=== PATIENT | male | born 1970 | race Caucasian/White ===

== ENCOUNTER → 2021-07-18 10:29 | Outpatient (CLI) | payer OTHER, SELFPAY ==
[2021-07-18 18:46] LABS: Add Manual Diff / Slide Review NO; Basophils Absolute Auto 0 /uL (0-100); Basophils Percent Auto 0.4 % (0-2); Eosinophils Absolute Auto 300 /uL (0-450); Hematocrit 42.4 % (41-53); Hemoglobin 14.4 g/dL (13.5-17.5); Lymphocytes Absolute Auto 1800 /uL (1100-4500); Lymphocytes Percent Auto 27.7 % (25-40); Mean Corpuscular HGB Conc 33.9 % (30-36); Mean Corpuscular Hemoglobin 30.1 PG (26-34); Mean Corpuscular Volume 88.9 fL (80-100); Monocytes Absolute Auto 600 /uL (0-900); Neutrophils Absolute Auto 3900 /uL (1500-7000); Neutrophils Percent Auto 58.9 % (50-75); Platelet Count 243 X10^3/uL (150-400); Red Blood Cell Count 4.78 X10^6/uL (4.5-5.9); Red Cell Distribution Width 13.7 % (11.6-14.8); White Blood Cell Count 6.6 X10^3/uL (4.5-11.0)
[2021-07-18 19:16] LABS: Alanine Aminotransferase 26 IU/L (<50); Albumin 4.2 g/dL (3.5-5.0); Albumin Globulin Ratio 1.3 (1.0-2.8); Alkaline Phosphatase 68 U/L (38-126); Aspartate Aminotransferase 29 IU/L (17-59); BUN Creatinine Ratio 20.5 (6-22); Bilirubin Total 0.8 mg/dL (0.2-1.3); Blood Urea Nitrogen 18 mg/dL (9-20); Calcium 9.7 mg/dL (8.4-10.2); Carbon Dioxide 32 mmol/L (22-32); Chloride 103 mmol/L (98-107); Cholesterol 131 mg/dL (140-199); Estimated Glomerular Filt Rate > 60.0 mL/min (>60); Globulin 3.2 g/dL (1.7-4.1); Glucose 100 mg/dL (70-100); HDL Cholesterol 52 mg/dL (40-60); HEMOLYSIS < 15 (0-50); LDL Cholesterol Calculated 66 mg/dL (<100); Potassium 4.6 mmol/L (3.4-5.1); Sodium 138 mmol/L (137-145); Total Protein 7.4 g/dL (6.3-8.2); Triglycerides 67 mg/dL (35-150)
[2021-07-18 19:40] LABS: Prostate Specific Antigen Scrn 0.206 ng/mL (0.1-4.0)
== END ==
PROVIDERS: PCP Family Medicine; Visit Provider Family Medicine
DX: Z12.5 Encounter for screening for malignant neoplasm of prostate (principal); Z13.220 Encounter for screening for lipoid disorders; Z13.228 Encounter for screening for other metabolic disorders
CPT/HCPCS: 80053; 80061; 85025; G0103

== ENCOUNTER → 2021-09-19 09:42 | Outpatient (CLI) | payer OTHER, SELFPAY ==
[2021-09-19 21:21] LABS: COVID19 - ORCAS (NP or Nasal) Negative (Negative)
== END ==
PROVIDERS: PCP Family Medicine; Visit Provider Family Medicine
DX: Z01.812 Encounter for preprocedural laboratory examination (principal)
CPT/HCPCS: U0003

== ENCOUNTER 2021-09-20 10:40 | Day surgery (SDC) | payer OTHER, SELFPAY ==
--- NOTE | 2021-09-20 | PATH_ITS ---
[facility] Accession Number: [id number] . 01 Material submitted: . colon - PROXIMAL TRANSVERSE COLON POLYP . 02 Diagnosis: Proximal Transverse Colon Polyp, Biopsy; Sessile serrated adenoma. MRV 09/24/2021 1613 Local . 02 Electronically signed: . Ashok Chaudhry MD, PhD, Pathologist NPI- [id number] . 01 Gross description: . PROXIMAL TRANSVERSE COLON POLYP: Received in formalin is 1 fragment(s) of murcia, soft tissue measuring 0.7 x 0.3 x 0.1 cm submitted entirely in 1 cassette(s) /CPE 09/21/2021 0832 Local . 02 Pathologist provided ICD-10: D12.3 . 02 CPT . 573652 Specimen Comment: A courtesy copy of this report has been sent to [phone] Performed at: 01 [facility] [address] [facility], [place], [place] [id number] MD John Estes MD Phone: [phone] Performed at: 02 [facility] [place] [address] [place], [place] [id number] MD Shana Girard MD Phone: [phone]
[2021-09-20] MEDS: LACTATED RINGERS 1,000 ML 84 ML IV (10:52)
[2021-09-20 11:05] VITALS: BP 132/80; PULSE 58; RESP 16; TEMP 36.5; BMI 26.4
--- NOTE | 2021-09-20 12:11 | PM.HP.1 ---
History of Present Illness History of Present Illness Date Patient Seen: 09/20/21 Time Patient Seen: 12:11 Chief complaint: SDC Narrative: Andrzej is a 51-year-old man who has not had a colonoscopy yet. He is here for colon cancer screening. Patient History Medical History (Updated 09/20/21 @ 12:12 by Ayaz Coles MD) Encounter for well adult exam without abnormal findings Surgical History Anesthesia History of surgery (~2009) Family & Social History Social History: household members spouse Tobacco & Substance use: Smoking Status Never smoker alcohol intake current alcohol intake frequency a few times a month Substance Use Type marijuana Meds Home Medications and Allergies Home Medications Medication Instructions Recorded Confirmed Type No Known Home Medications 09/20/21 09/20/21 History Allergies Allergy/AdvReac Type Severity Reaction Status Date / Time No Known Drug Allergies Allergy Verified 07/06/21 15:11 Exam Vital Signs (past 8 hours): - 09/20/21 11:05 Temperature 97.7 F Pulse Rate 58 L Respiratory Rate 16 Blood Pressure 132/80 Oxygen Delivery Method Room Air Const General: healthy appearing Resp Effort & Inspection: normal respiratory effort GI Palpation: soft Assessment & Plan Assessment and plan (1) Colon cancer screening: Status: Acute Plan We reviewed the risks and benefits of colonoscopy for colon cancer screening. He would like to proceed. COVID-19 COVID-19 status: Negative Result date/Date tested (Pos, Neg/Pending): 09/19/21 Time Spent With Patient Critical Care time: I spent a total of [] minutes of critical care time on this patient's care today; this time is exclusive of procedural time.
[2021-09-20] MEDS: MIDAZOLAM 5 MG/5 ML VIAL IV (12:38)
[2021-09-20] MEDS: fentaNYL 250 MCG/5 ML INJ IV (12:38)
--- NOTE | 2021-09-20 12:43 | P.OP.COLON_ITS ---
Operative Date/Time/Diagnoses Date of procedure: 09/20/21 Time of procedure: 12:43 Pre-op diagnosis: Colon cancer screening Post-op diagnosis: same Procedure & Clinicians Study performed: Colonoscopy Same procedure as scheduled: Yes Indications: Colon cancer screening Surgeon: Ayaz Coles Procedure Notes SCOAP/Timeout: Yes Procedure in detail: Procedure: The patient was brought to the endoscopy suite, placed in left lateral decubitus position. The patient was connected to monitoring devices. A time-out was performed. Sedation was administered. Once the patient was adequately sedated, a digital rectal exam was performed and was normal. The scope was then inserted and advanced to the cecum where the appendiceal orifice was identified and photographed. The prep in the cecum and ascending colon was inadequate. There was a layer bilious material that could not be washed away with power electronics research engineer. There were no obvious masses or large polyps in the right colon. The scope was then slowly withdrawn over greater than 6 minutes. Mucosa was thoroughly inspected. There is a polyp in the proximal transverse colon which was about 5-6 mm and was removed with cold snare. There was scattered diverticulosis greatest in the sigmoid colon. The scope was retroflexed in the rectum. No abnormalities were noted. The scope was straightened and removed. The patient was awakened and brought to recovery. Versed: 7 mg Fentanyl: 175 mcg EBL: 5 mL Findings: Proximal sigmoid colon polyp and diverticulosis Scope withdrawal time: 10 Sedation minutes: 25 Post-procedure Recommendations: Colonoscopy in 1 year
[2021-09-20 12:46] VITALS: BP 113/74; PULSE 75; RESP 10; TEMP 36.7; O2SAT 93
[2021-09-20 12:51] VITALS: BP 113/86; PULSE 59; RESP 15; O2SAT 98
[2021-09-20 12:56] VITALS: BP 114/87; PULSE 54; RESP 12; O2SAT 97
[2021-09-20 13:20] VITALS: BP 128/92; PULSE 52; RESP 18; TEMP 36.7; O2SAT 96
--- NOTE | 2021-09-20 13:22 | SUR.PHASEII ---
pt ready to go home but has to wait on his to pick him up at 2pm.
[2021-09-20 13:50] VITALS: BP 121/81; PULSE 47; RESP 16; O2SAT 99
--- NOTE | 2021-09-20 14:03 | SUR.PHASEII ---
Pt is awaiting ride. He is dressed and drinking coffee Denies any complaints and denies any pain.
== END 2021-09-20 14:12 | disposition home or self-care (01) ==
LOC: ENDO 10:41
PROVIDERS: PCP Family Medicine; Referring Provider Surgery; Visit Provider Surgery
PROC: 0DJD8ZZ Inspection of Lower Intestinal Tract, Via Natural or Artificial Opening Endoscopic (ICD-10-PCS; CPT 45378; principal; 2021-09-20 11:30)
DX: Z12.11 Encounter for screening for malignant neoplasm of colon (principal); K57.30 Diverticulosis of large intestine without perforation or abscess without bleeding; D12.3 Benign neoplasm of transverse colon
CPT/HCPCS: 45385; 99152; 99153; J2250; J3010

== ENCOUNTER → 2024-12-22 09:18 | Outpatient (CLI) | payer OTHER, SELFPAY ==
[2024-12-22 20:53] LABS: Alanine Aminotransferase 26 IU/L (<50); Albumin 4.2 g/dL (3.5-5.0); Albumin Globulin Ratio 1.2 (1.0-2.8); Alkaline Phosphatase 77 U/L (38-126); Blood Urea Nitrogen 20 mg/dL (9-20); Calcium 9.6 mg/dL (8.4-10.2); Carbon Dioxide 27 mmol/L (22-32); Chloride 103 mmol/L (98-107); Cholesterol 139 mg/dL (140-199); Estimated Glomerular Filt Rate > 60 mL/min (>60); Globulin 3.4 g/dL (1.7-4.1); Glucose 97 mg/dL (70-99); HDL Cholesterol 42 mg/dL (40-60); HEMOLYSIS < 15 (0-50); Potassium 4.3 mmol/L (3.4-5.1); Sodium 139 mmol/L (137-145); Total Protein 7.6 g/dL (6.3-8.2); Triglycerides 87 mg/dL (35-150)
[2024-12-22 21:03] LABS: Add Manual Diff / Slide Review NO; Hematocrit 42.2 % (41-53); Hemoglobin 14.3 g/dL (13.5-17.5); Lymphocytes Absolute Auto 1700 /uL (1100-4500); Mean Corpuscular HGB Conc 33.9 % (30-36); Mean Corpuscular Hemoglobin 30.7 PG (26-34); Mean Corpuscular Volume 90.7 fL (80-100); Platelet Count 244 X10^3/uL (150-400)
== END ==
PROVIDERS: PCP Family Medicine; Visit Provider Physician Assistant
DX: Z12.5 Encounter for screening for malignant neoplasm of prostate (principal); Z13.1 Encounter for screening for diabetes mellitus; K57.90 Diverticulosis of intestine, part unspecified, without perforation or abscess without bleeding; Z86.0100 Personal history of colon polyps, unspecified
CPT/HCPCS: 80053; 80061; 85025; G0103